=== PATIENT | female | born 1955 | race Caucasian/White ===

== ENCOUNTER 2019-02-26 10:33 | Emergency (ER) | payer OTHER ==
--- NOTE | 2019-02-26 10:41 | ED ---
Upper Extremity Pain - HPI Summary HPI Summary: 63-year-old female with a significant past medical history of anxiety, depression, PTSD presents to the emergency department today after slipping on ice and landing on her right wrist. Today she complains of 10 out of 10 aching pain to her right wrist which is worse with movement. She says she took a tramadol prior to arrival which improved her pain slightly. She denies use of blood thinners and she denies any trauma to this extremity. She has reduced range of motion her wrist but is able to move her fingers. She endorses full sensation to the right hand and forearm. She denies any other injuries. She denies any recent recreational drug use, alcohol use, chest pain, abdominal pain , painful urination, headaches, changes in vision, neck pain. - History of Current Complaint Chief Complaint: EDExtremityUpper Stated Complaint: RT WRIST INJURY PER PT Time Seen by Provider: 02/26/19 10:41 Hx Obtained From: Patient Mechanism Of Injury: Fall From A Standing Position Onset/Duration: Started Hours Ago Timing: Constant Severity Initially: Moderate Severity Currently: Moderate Pain Location: Wrist - Right Character: Aching Aggravating Factor(s): Movement, Lifting, Flexion, Extension, Internal/External Rotation, Abduction, Adduction, Twisting, Pulling Alleviating Factor(s): Rest, Ice, Other - Tramadol Associated Signs & Symptoms: Positive: Swelling, Bruising. Negative: Fever, Numbness/Tingling Related History: Dominant Hand Right - Allergies/Home Medications Allergies/Adverse Reactions: Allergies Allergy/AdvReac Type Severity Reaction Status Date / Time No Known Allergies Allergy Verified 02/26/19 10:39 PMH/Surg Hx/FS Hx/Imm Hx Cardiovascular History: Reports: Hx Hypertension Musculoskeletal History: Reports: Hx Arthritis Psychiatric History: Reports: Hx Anxiety, Hx Depression, Hx Post Traumatic Stress Disorder Denies: Hx of Violent Episodes Against Others Infectious Disease History: No Infectious Disease History: Denies: Traveled Outside the [place] in Last 30 Days - Family History Known Family History: Negative: Cardiac Disease Family History: High cholesterol - Social History Alcohol Use: Occasionally Alcohol Amount: 3 drinks today Substance Use Type: Reports: None Smoking Status (MU): Never Smoked Tobacco Review of Systems Constitutional: Negative Cardiovascular: Negative Respiratory: Negative Positive: Bruising - to the right wrist Psychological: Normal All Other Systems Reviewed And Are Negative: Yes Physical Exam Triage Information Reviewed: Yes Vital Signs On Initial Exam: Initial Vitals Temp Pulse Resp BP Pulse Ox 96.4 F 52 18 144/62 96 02/26/19 10:37 02/26/19 10:37 02/26/19 10:37 02/26/19 10:37 02/26/19 10:37 Vital Signs Reviewed: Yes Appearance: Positive: Well-Appearing, No Pain Distress, Well-Nourished Skin: Positive: Warm, Skin Color Reflects Adequate Perfusion Eyes: Positive: EOMI, ELI ENT: Positive: Hearing grossly normal Respiratory/Lung Sounds: Positive: Clear to Auscultation, Breath Sounds Present Cardiovascular: Positive: RRR, S1, S2 Abdomen Description: Positive: Nontender Bowel Sounds: Positive: Present Musculoskeletal: Positive: Limited @ - Limited motion in the right wrist due to pain, Pain @ - Right wrist, Other - Radial pulses are 2+ bilaterally. There is decreased range of motion the right wrist pain as well as appreciable swelling to the right wrist. No significant ecchymosis to the area, or gross deformity Neurological: Positive: Sensory/Motor Intact, Alert, Oriented to Person Place, Time Psychiatric: Positive: Normal AVPU Assessment: Alert Procedures - Sedation Patient Received Moderate/Deep Sedation with Procedure: No - Splinting Right Upper Extremity Location: right sugar tong splint Diagnostics - Vital Signs Vital Signs Temp Pulse Resp BP Pulse Ox 02/26/19 10:37 96.4 F 52 18 144/62 96 - Laboratory Lab Statement: Any lab studies that have been ordered have been reviewed, and results considered in the medical decision making process. Course/Dx - Course Course Of Treatment: Patient was evaluated today in the emergency Department for a fracture to the right arm. She came with a chief complaint of pain in her right wrist after slipping on ice. The patient was seen and examined. An x -ray of her right wrist was obtained which showed a fracture of the distal radius with dorsal angulation and overriding of the fracture pieces as well as a fracture of the ulnar styloid. She was given a 5-325 tablets of hydrocodone/ acetaminophen for pain. A plaster sugar tong splint was applied to the right upper extremity for immobilization for fracture. The patient tolerated this very well. Following cast placement patient retained good range of motion in her fingers and remained neurovascularly intact. She was told to follow up with orthopedics in one to 2 days for further evaluation and management. She was given 3 days of hydrocodone for pain until she follows with orthopedics. She was told to return to the emergency department if she develops any new or worsening symptoms including increased pain, numbness in her hand, if her fingers turn purple. She agrees with this plan. Discharge ED - Discharge Plan Condition: Improved Disposition: HOME Prescriptions: HYDROcodone/ACETAMIN 5-325 MG* [[place] 5-325 TAB*] 1 tab PO Q4H PRN #20 tab MDD 6 tabs PRN Reason: Pain - Severe Patient Education Materials: Arm Fracture in Adults (ED) Referrals: Ryan Barlow MD [Medical Doctor] - 2 Days Adrian Arnold MD [Primary Care Provider] - 2 Days Additional Instructions: You were seen in the emergency department today due to a fracture of the right arm. A splint was applied to alleviate your symptoms and to allow proper bone healing. Please remain in the splint until you're seen by orthopedics in the next 1-2 days. For pain I sent a prescription to her pharmacy which she may take every 4 hours as needed. If your symptoms worsen or you develop any new symptoms such as numbness, tingling, extreme pain in your right arm please return to the emergency Department immediately. Return to activity as tolerated. - Billing Disposition and Condition Condition: IMPROVED Disposition: Home
[2019-02-26] MEDS: HYDROcodone/ACETAMIN 5-325 MG* 1 TAB PO ONE (11:46)
[2019-02-26 13:03] VITALS: BP 152/78
== END 2019-02-26 13:12 | disposition home or self-care (01) ==
LOC: ED 10:33
DX: S52.501A Unspecified fracture of the lower end of right radius, initial encounter for closed fracture (principal); S52.611A Displaced fracture of right ulna styloid process, initial encounter for closed fracture; W00.0XXA Fall on same level due to ice and snow, initial encounter; Y92.9 Unspecified place or not applicable; I10 Essential (primary) hypertension; F41.9 Anxiety disorder, unspecified; F32.9 Major depressive disorder, single episode, unspecified; F43.10 Post-traumatic stress disorder, unspecified
CPT/HCPCS: 99282

== ENCOUNTER 2019-03-02 14:44 | Emergency (ER) | payer OTHER ==
[2019-03-02] MEDS ORDERED: HYDROcodone/ACETAMIN 5-325 MG* 1 TAB PO ONE (15:18)
--- OUTSIDE RECORDS SUMMARY | 2019-03-02 15:23 | XMS REPORT ---
:1955 Author Name Urban Lake[place] [address] Care Team Providers Name Role Phone SandstoneBlaine Unavailable Unavailable Lakeisha Duggan Unavailable Unavailable Allergies, Adverse Reactions, Alerts Allergy Code CodeSystem Reaction Severity Status Substance RxNorm Medications Medication Medication Medication Start Route Dose Status Fill Code CodeSystem Date Instructions RxNorm NoCurrentDosage Active NoCurrentFrequency RxNorm NoCurrentDosage Active NoCurrentFrequency RxNorm NoCurrentDosage Active NoCurrentFrequency RxNorm NoCurrentDosage Active NoCurrentFrequency RxNorm NoCurrentDosage Active NoCurrentFrequency RxNorm NoCurrentDosage Active NoCurrentFrequency RxNorm NoCurrentDosage Active NoCurrentFrequency RxNorm NoCurrentDosage Active NoCurrentFrequency RxNorm NoCurrentDosage Active NoCurrentFrequency RxNorm NoCurrentDosage Active NoCurrentFrequency Hospital Discharge Medications Medication Direction Start Date Status Indications Fill Instuctions No Discharge Medication Problems Problem Name Code CodeSystem Start Date End Date Status SNOMED-CT 2018-09-23 Active SNOMED-CT 2018-09-23 Active Laboratory Values/Results Test Test Code Code System Actual Result Date LOINC Procedures Procedure Name Code CodeSystem Target Site Date of Procedure SNOMED-CT () 2018-09-23 SNOMED-CT () 2018-09-25 SNOMED-CT () 2018-10-20 SNOMED-CT () 2018-10-17 SNOMED-CT () 2018-11-06 SNOMED-CT () 2018-11-13 SNOMED-CT () 2018-11-20 SNOMED-CT () 2018-12-16 SNOMED-CT () 2019-01-06 SNOMED-CT () 2018-12-25 SNOMED-CT () 2019-01-12 Encounter Diagnosis Code CodeSystem Description Date Finding Finding Code Status 38829 CPT Initial - SNOMED-CT Active Assessment 3 Diagnostic & Treatment Plan w/ Medical Services Vital Signs Vitals Date Value Immunizations Vaccine Name Vaccine Code CodeSystem Date Status Social History Element Description Start Date End Date Code CodeSystem Description SNOMED-CT Hospital Discharge Instructions Reason For Referral
[2019-03-02 15:44] VITALS: BP 134/75
--- NOTE | 2019-03-02 15:50 | ED ---
Upper Extremity Pain - HPI Summary HPI Summary: Patient is a 63-year-old female who presents emergency department for evaluation of increased pain and swelling to no right forearm fracture. Patient was seen in the ER for days ago after she fell and sustained a distal radial fracture. She is placed in a sugar tong splint and referred to orthopedics. Patient states she cannot see orthopedics tell and was concerned with increased pain and swelling to wrist. She denies numbness, tingling to arm. Patient states she ran out of her pain medication. Symptoms are mild in severity. No current modifying factors. - History of Current Complaint Chief Complaint: EDExtremityUpper Stated Complaint: RT WRIST PAIN PER PT Time Seen by Provider: 03/02/19 14:59 Hx Obtained From: Patient - Allergies/Home Medications Allergies/Adverse Reactions: Allergies Allergy/AdvReac Type Severity Reaction Status Date / Time No Known Allergies Allergy Verified 02/26/19 10:39 PMH/Surg Hx/FS Hx/Imm Hx Previously Healthy: Yes Cardiovascular History: Reports: Hx Hypertension Musculoskeletal History: Reports: Hx Arthritis Psychiatric History: Reports: Hx Anxiety, Hx Depression, Hx Post Traumatic Stress Disorder Denies: Hx of Violent Episodes Against Others Infectious Disease History: No Infectious Disease History: Denies: Traveled Outside the [place] in Last 30 Days - Family History Known Family History: Positive: Non-Contributory Negative: Cardiac Disease Family History: High cholesterol - Social History Occupation: Retired Lives: Dormitory/Roommates Alcohol Use: None Alcohol Amount: 3 drinks today Substance Use Type: Reports: None Smoking Status (MU): Never Smoked Tobacco Review of Systems Positive: Other - pain left wrist Positive: Bruising Neurological: Negative Negative: Weakness, Paresthesia, Numbness All Other Systems Reviewed And Are Negative: Yes Physical Exam Triage Information Reviewed: Yes Vital Signs On Initial Exam: Initial Vitals Temp Pulse Resp BP Pulse Ox 97.8 F 80 16 155/82 97 03/02/19 14:49 03/02/19 14:49 03/02/19 14:49 03/02/19 14:49 03/02/19 14:49 Vital Signs Reviewed: Yes Appearance: Positive: Well-Appearing - Pt. sitting on bed in NAD. Skin: Positive: Warm, Dry Head/Face: Positive: Normal Head/Face Inspection Eyes: Positive: Normal, EOMI Neck: Positive: Supple Musculoskeletal: Positive: Other - Sugar tong splint on right arm was taken off. Brisk capillary refill. Good radial pulse. Compartments are soft. No breaks in skin. Mild ecchymosis and edema to distal forearm and digits. Neurological: Positive: Normal, CN Intact II-III Psychiatric: Positive: Affect/Mood Appropriate Procedures - Sedation Patient Received Moderate/Deep Sedation with Procedure: No - Splinting Right Upper Extremity Hand-Made Type: orthoglass Splint: sugar-tong Pre-Proc Neuro Vasc Exam: normal Post-Proc Neuro Vasc Exam: normal Splint Applied by Provider: [facility] - Vital Signs Vital Signs Temp Pulse Resp BP Pulse Ox 03/02/19 15:43 97.9 F 68 16 134/75 94 03/02/19 15:04 98.9 F 69 18 162/79 96 03/02/19 14:49 97.8 F 80 16 155/82 97 - Laboratory Lab Statement: Any lab studies that have been ordered have been reviewed, and results considered in the medical decision making process. Course/Dx - Course Course Of Treatment: Patient presenting with ongoing pain and swelling after radial fracture. Splint was removed and no evidence of compartment syndrome. Patient reassured. Sugar tong splint was replaced. We'll prescribe a few days of additional Lortab until she sees orthopedics on . NEURODIAGNOSTIC TECHNOLOGIST reviewed. Advised patient she needs to elevate and ice intermittently. We'll return to the ER for severe pain, swelling, numbness, tingling or if concerned. Patient understands and agrees with plan. Case discussed with Dr. Castañeda who agrees with plan. - Diagnoses Differential Diagnosis/HQI/PQRI: Positive: Fracture (Closed) Provider Diagnoses: Wrist fracture Discharge ED - Sign-Out/Discharge Documenting (check all that apply): Patient Departure - Discharge Plan Condition: Good Disposition: HOME Prescriptions: Hydrocodone/Acetaminophen [Hydrocodone/Acetaminophen 5-325 mg] 1 tab PO Q6H #12 tab MDD 4 Patient Education Materials: Wrist Fracture in Adults (ED) Referrals: Ryan Barlow MD [Medical Doctor] - Adrian Arnold MD [Primary Care Provider] - Additional Instructions: Follow up with orthopedics as scheduled Pain medication as directed Ibuprofen 400mg every 6 hours for pain as directed Elevate are and apply ice intermittently Return to ER if symptoms change or worsen - Billing Disposition and Condition Condition: GOOD Disposition: Home
== END 2019-03-02 15:43 | disposition home or self-care (01) ==
LOC: ED 14:44
DX: S52.501A Unspecified fracture of the lower end of right radius, initial encounter for closed fracture (principal); W19.XXXA Unspecified fall, initial encounter; Y92.9 Unspecified place or not applicable; I10 Essential (primary) hypertension; F41.9 Anxiety disorder, unspecified; F32.9 Major depressive disorder, single episode, unspecified; F43.10 Post-traumatic stress disorder, unspecified
CPT/HCPCS: 99282

== ENCOUNTER 2019-03-11 11:10 | Day surgery (SDC) | payer OTHER ==
[~2019-03-11 11:10] MED LIST: Buffered Lidocaine 1% SYRIN* 1 ML/SYRINGE INTRADERM ONE; Lactated Ringers 1000 ML Bag* 1,000 ML IV SCH; Sodium Citrate/Citric Acid* 15 ML UDC PO ONE
[2019-03-11] MEDS ORDERED: ceFAZolin 2 GM in NS PREMIX(*) 2 GM/100 ML BAG IVPB ONE (11:36)
[2019-03-11] MEDS ORDERED: Sodium Citrate/Citric Acid* 15 ML UDC ONE (11:36)
[2019-03-11] MEDS ORDERED: Bupivacaine 0.5% SDV PF* 30ML VIAL ONE (11:46)
[2019-03-11] MEDS ORDERED: ROPIVACAINE 5 MG/ML 30 ML BTL (0.5%) ONE (12:12)
[2019-03-11] MEDS ORDERED: Propofol* 10 MG/ML 20 ML BTL ONE (12:15)
[2019-03-11] MEDS ORDERED: Midazolam* 1 MG/ML 2 ML VIAL (2 MG) ONE (12:15)
[2019-03-11] MEDS ORDERED: fentaNYL* 50 MCG/ML 2 ML VIAL (100 MCG VIAL) ONE (12:15)
[2019-03-11] MEDS ORDERED: fentaNYL* 50 MCG/ML 2 ML VIAL (100 MCG VIAL) IV PRN (12:58)
[2019-03-11] MEDS ORDERED: Acetaminophen IV 1GM/100ML * 1,000 MG/100 ML VIAL IVPB ONE (12:58)
[2019-03-11] MEDS ORDERED: Ondansetron INJ* 2 MG/ML VIAL IV PRN (12:58)
[2019-03-11] MEDS ORDERED: Ketorolac INJ* 30 MG/ML 1 ML VIAL IV PRN (12:58)
[2019-03-11] MEDS ORDERED: Naloxone* 0.4 MG/ML 1 ML VIAL IV PRN (12:58)
[2019-03-11 15:08] VITALS: BP 133/73
--- NOTE | 2019-03-11 21:13 | OP ---
DATE OF OPERATION: 03/11/19 [facility] DATE OF : 53 SURGEON: Ryan Barlow MD DRY BOX OPERATOR: MORENO Pfeiffer. A physician business development assistant was required for the length of the procedure for assistance with patient positioning, retraction, instrumentation, and closure. ANESTHESIOLOGIST: Dr. Baljit Thompson. ANESTHESIA: General anesthesia, regional anesthesia. PRE-OP DIAGNOSIS: Right distal radius fracture, displaced, comminuted. POST-OP DIAGNOSIS: Right distal radius fracture, displaced, comminuted. OPERATIVE PROCEDURE: Open reduction internal fixation, right distal radius fracture, displaced, comminuted, intraarticular. 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 The patient was seen in clinic. Discussed the patient's x-rays which showed significant loss or radial inclination and volar tilt. Much comminution dorsally. Discussed operative and nonoperative treatment options. We decided on surgery. Discussed risks and potential complications of surgery. Placed a cast on in clinic. ANTIBIOTICS: Ancef 2 g IV. IV FLUIDS: See Anesthesia note. [id number] TIME: 87 minutes. TOURNIQUET TIME: 88 minutes, tourniquet right upper arm, 250 mmHg. SPECIMEN: None. IMPLANTS: Synthes polyaxial locking plate, volar, distal radius, narrow, 3- hole. COMPLICATIONS: None. ESTIMATED BLOOD LOSS: Minimal. DESCRIPTION OF PROCEDURE: In preoperative holding, the patient's cast was bivalved and partially removed. The patient signed a written consent. Operative extremity was marked. The patient discussed with Anesthesia and decided on a regional nerve block and this was performed after the patient was brought to the operating room and placed supine on a stretcher there. Hand table applied to bed. Right upper extremity prepped and draped after the tourniquet was applied to the right upper arm. Surgical time-out performed. Esmarch was applied and tourniquet elevated. A 7 cm standard skin incision. Dissected down to FCR. Released the sheath above the FCR. I retracted FCR. Released the FCR subsheath. Retracted the FPL ulnarly. Identified palmaris quadratus. This layer in this patient was quite lorenzo, quite thick. I released it off the radial aspect of the distal radius and retracted it ulnarly. Identified fracture site. Reduced it. Placed a 0.062 K-wire across the fracture site. Took many C-arm images. This partially improved the reduction. I re-reduced the fracture and replaced a 0.062 K-wire. I decided on a narrow 3-hole plate. I pinned that into place and took mini C- arm images which confirmed adequacy. I placed a 2.4 mm nonlocking screw through the oval hole proximally. I then rotated the plate slightly and moved it slightly proximally and re-pinned it. Mini C-arm images showed adequate reduction and fixation. I placed one nonlocking screw in the distal row to suck the plate down to bone. A plate was nicely sucked down to bone along the entire length of the plate. Radiographs showed nearly full worship of the radial inclination. The volar tilt was proximally neutral, significantly improved compared to preoperative. Despite full flexion of the wrist with manipulation and bringing of bone to plate, there was still some loss of volar tilt, but I was comfortable with that level of improvement. I believe the patient had a significant amount of loss of dorsal bone that prevented her from getting to full volar tilt. I filled the plate, locking screws x4 in the distal most row of the plate. Given that this was a more distal fracture, the second most distal row was not filled with screws. Proximally, I placed 2 locking screws and I replaced my 2.4 mm nonlocking screw with a 2.7 mm nonlocking screw. Irrigation. Closure of the FCR subsheath to the pronator quadratus with figure- of- eight stitches using Vicryl 3.0 suture. Closure of the subcutaneous tissue with buried simple stitches using Vicryl 3.0 suture. Closure of the skin with a running stitch using nylon 4.0 suture. Xeroform, 4x4s, sterile Webril, volar plaster splint wrapped with an [place] bandage. The patient was placed in a sling because of the regional nerve block. Awakened, extubated, and transferred to the PACU. DISPOSITION: The patient will follow up with me in approximately 10 days postoperatively. She received pain medication, [place]. She will remain in her splint until postoperative [place]. [id number]/[facility] #: [id number] [facility]
== END 2019-03-11 15:25 | disposition home or self-care (01) ==
LOC: OREAST 11:10
PROVIDERS: ATTEND Orthopaedic Surgery
DX: S52.501A Unspecified fracture of the lower end of right radius, initial encounter for closed fracture (principal); W18.39XA Other fall on same level, initial encounter; Y92.9 Unspecified place or not applicable; R73.03 Prediabetes; F41.8 Other specified anxiety disorders; M19.90 Unspecified osteoarthritis, unspecified site; I10 Essential (primary) hypertension; K21.9 Gastro-esophageal reflux disease without esophagitis; G89.18 Other acute postprocedural pain
CPT/HCPCS: 76000; A9270-GY; C1713; C1776; J0690; J2250; J2704; J2795; J3010; J3490